=== PATIENT | female | born 1985 | race Caucasian/White ===

== ENCOUNTER 2020-05-30 23:22 | Emergency (ER) | payer OTHER ==
[~2020-05-30 23:22] MED LIST: AUGMENTIN 875-1 EACH PO; CLEOCIN HCL300 MG PO; NAPROSYN500 MG PO; NEURONTIN800 MG PO; PRENATAL VITAM1 EAC5 PO; SUBUTEX 8 MG TAB8 MG SL; Viscous Lidocaine 2% TOP; ZOFRAN ODT 4 MG4 MG SL; ZYRTEC10 M3 PO
== END 2020-05-31 02:20 | disposition left against medical advice (07) ==
LOC: ER1 23:22
DX: Z53.21 Procedure and treatment not carried out due to patient leaving prior to being seen by health care provider (principal)

== ENCOUNTER 2020-05-31 18:23 | Emergency (ER) | payer OTHER ==
[2020-05-31 19:52] LABS: HEMOGLOBIN 14.5 gm/dl (12.3-15.3); RED BLOOD COUNT 4.32 M/UL (4.00-5.10); WHITE BLOOD COUNT 9.6 K/UL (4.5-11.0)
[2020-05-31 20:30] LABS: BUN/CREATININE RATIO 30 (0-10)
== END 2020-05-31 22:12 | disposition home or self-care (01) ==
LOC: ER1 18:23
PROVIDERS: Family Medicine
DX: F15.10 Other stimulant abuse, uncomplicated (principal); L29.8 Other pruritus
CPT/HCPCS: 36415; 80053; 80307; 81001; 83690; 84703; 85025; 99283; G0480

== ENCOUNTER 2020-10-11 16:34 | Emergency (ER) | payer OTHER ==
[2020-10-11 17:51] LABS: HEMOGLOBIN 14.3 gm/dl (12.3-15.3); RED BLOOD COUNT 4.23 M/UL (4.00-5.10); WHITE BLOOD COUNT 6.3 K/UL (4.5-11.0)
[2020-10-11 18:24] LABS: BUN/CREATININE RATIO 19 (0-10)
[2020-10-11] MEDS ORDERED: ZOFRAN4 MG PO (19:11)
== END 2020-10-11 19:38 | disposition home or self-care (01) ==
LOC: ER1 16:34
PROVIDERS: Preventive Medicine Occupational Medicine
DX: R11.2 Nausea with vomiting, unspecified (principal); R10.9 Unspecified abdominal pain; Z20.822 Contact with and (suspected) exposure to COVID-19
CPT/HCPCS: 0240U; 80053; 83690; 85025; 85652; 86140; 96374; 96375; 99284; C9113; J2405; J7030; Q9967

== ENCOUNTER 2020-11-25 20:04 | Emergency (ER) | payer OTHER ==
[~2020-11-25 20:04] MED LIST changes: +ZOFRAN4 MG PO
[2020-11-26] MEDS ORDERED: PENVEE K 500 M500 MG PO (00:04)
== END 2020-11-26 00:05 | disposition home or self-care (01) ==
LOC: ER1 20:04
DX: J06.9 Acute upper respiratory infection, unspecified (principal); K04.7 Periapical abscess without sinus; Z79.899 Other long term (current) drug therapy; Z90.49 Acquired absence of other specified parts of digestive tract; Z20.822 Contact with and (suspected) exposure to COVID-19
CPT/HCPCS: 99283; U0002